=== PATIENT | female | born 1970 | race African-American/Black ===

== ENCOUNTER 2018-05-27 12:28 | Inpatient (IN) | payer MEDICAID, OTHER ==
[~2018-05-27] VITALS: Ht 165.1 cm; Wt 144.2 kg
[2018-05-27] MEDS ORDERED: DILTIAZEM HCL 5MG/ML 5ML VIAL IV ONE (12:45)
[2018-05-27] MEDS ORDERED: DILTIAZEM HCL 30MG TABLET PO ONE (12:45)
[2018-05-27] MEDS ORDERED: ASPIRIN 81MG TABLET PO ONE (12:45)
[2018-05-27] MEDS ORDERED: DEXTROSE 50% WATER 50ML SYRINGE IV ONE ×2 (12:52→13:30)
[2018-05-27 13:18] LABS: BASOPHILS % 0.1 % (0.0-2.0); EOSINOPHILS % 0.4 % (0.0-5.0); HEMATOCRIT. 42.1 % (36.0-48.0); HEMOGLOBIN. 13.1 g/dL (12.0-16.0); LYMPHOCYTES % 7.9 % (20.0-50.0); MEAN CORPUSCULAR HEMOGLOBIN 30.6 pg (28.0-32.0); MEAN CORPUSCULAR VOLUME 98.4 fL (81.0-99.0); MEAN PLATELET VOLUME 8.7 fl (7.4-10.4); MONOCYTES % 5.4 % (2.0-8.0); NEUTROPHILS % 86.2 % (40.0-76.0); PLATELET 180 x1000/uL (130-400); RED BLOOD CELL COUNT 4.28 mill/uL (4.2-5.4); RED CELL DISTRIBUTION WIDTH 17.9 % (11.6-14.6)
[2018-05-27 13:28] LABS: CHLORIDE 97 mEq/L (98-107)
[2018-05-27 13:29] LABS: INR 2.3; PARTIAL THROMBOPLASTIN TIME 38.4 sec (23.4-31.0); PROTHROMBIN TIME 22.4 sec (9.1-11.1)
[2018-05-27 13:31] LABS: ETHANOL BLOOD < 10 mg/dL
[2018-05-27] MEDS ORDERED: IPRATROPIUM/ALBUTEROL 0.5-3(2.5)MG/3ML NEB INH PRN (16:30)
[2018-05-27] MEDS ORDERED: HYDROMORPHONE HCL/PF 2MG/ML CPJ IV PRN (16:30)
[2018-05-27] MEDS ORDERED: DOCUSATE SODIUM 100MG CAPSULE PO PRN (16:30)
[2018-05-27] MEDS ORDERED: ACETAMINOPHEN 325MG TABLET PO PRN (16:30)
[2018-05-27] MEDS ORDERED: CLONIDINE 0.1MG TABLET PO PRN (16:30)
[2018-05-27] MEDS ORDERED: LEVOFLOXACIN 500MG PREMIX 100 ML IV SCH (16:30)
[2018-05-27] MEDS ORDERED: MAGNESIUM/ALUMINUM HYDROXIDE/SIMETHICONE 30ML UDC PO PRN (16:30)
[2018-05-27] MEDS ORDERED: HYDROCODONE/ACETAMINOPHEN 5/325MG TABLET PO PRN (16:30)
[2018-05-27] MEDS ORDERED: ENOXAPARIN 40MG/0.4ML SYR SUBCUT SCH (16:30)
[2018-05-27] MEDS ORDERED: LORAZEPAM 2MG/ML CPJ IV PRN (16:30)
[2018-05-27] MEDS ORDERED: NA PHOS,M-B/NA PHOS,DI-BA ENEMA 118ML PR PRN (16:30)
[2018-05-27] MEDS ORDERED: DIPHENHYDRAMINE 50MG/ML VIAL IV PRN (16:30)
[2018-05-27] MEDS ORDERED: ONDANSETRON HCL 4MG/2ML INJ IV PRN (16:30)
[2018-05-27] MEDS: DEXT 5%/0.45% NACL 1000ML 1,000 ML IV SCH (18:55)
[2018-05-27] MEDS ORDERED: LEVOFLOXACIN 500MG PREMIX 100 ML IV NR (19:30)
[2018-05-27 22:30] VITALS: BP 115/64
[2018-05-27] MEDS ORDERED: DEXTROSE 50% WATER 50ML SYRINGE IV PRN (22:45)
[2018-05-28] VITALS (12 sets, daily range): BP systolic 87–147; BP diastolic 38–97
[2018-05-28 05:02] LABS: CLARITY URINE TURBID (CLEAR); COLOR URINE DARK YELLOW (YELLOW); KETONES URINE NEGATIVE (NEGATIVE); LEUKOCYTE ESTERASE URINE 3+ (NEGATIVE); NITRITE URINE NEGATIVE (NEGATIVE); OCCULT BLOOD URINE 3+ (NEGATIVE); PROTEIN URINE 2+ (NEGATIVE); SPECIFIC GRAVITY URINE 1.013 (1.005-1.030)
[2018-05-28 06:18] LABS: HEMATOCRIT. 39.3 % (36.0-48.0); HEMOGLOBIN. 12.6 g/dL (12.0-16.0); MEAN CORPUSCULAR HEMOGLOBIN 30.9 pg (28.0-32.0); MEAN CORPUSCULAR VOLUME 96.3 fL (81.0-99.0); MEAN PLATELET VOLUME 8.9 fl (7.4-10.4); PLATELET 138 x1000/uL (130-400); RED BLOOD CELL COUNT 4.08 mill/uL (4.2-5.4); RED CELL DISTRIBUTION WIDTH 17.6 % (11.6-14.6)
[2018-05-28 06:23] LABS: CHLORIDE 100 mEq/L (98-107)
[2018-05-28 06:34] LABS: HDL CHOLESTEROL 25 mg/dL (40-59); LDL CHOLESTEROL 19 mg/dL (5-100)
[2018-05-28 06:35] LABS: T4 FREE 1.15 ng/dL (0.76-1.46)
[2018-05-28 07:24] LABS: *AMPHETAMINES SCREEN URINE NEGATIVE (NEGATIVE)
[2018-05-28 07:25] LABS: *BARBITURATES SCREEN URINE NEGATIVE (NEGATIVE); *BENZODIAZEPINES SCREEN URINE NEGATIVE (NEGATIVE); *COCAINE SCREEN URINE NEGATIVE (NEGATIVE); METHADONE URINE SCREEN NEGATIVE (NEGATIVE); OPIATES URINE SCREEN NEGATIVE (NEGATIVE)
[2018-05-28 07:26] LABS: CANNABINOID URINE SCREEN NEGATIVE (NEGATIVE); PHENCYCLIDINE URINE SCREEN NEGATIVE (NEGATIVE)
[2018-05-28] MEDS: INSULIN LISPRO 100 UNITS/ML SUBCUT SCH ×4 (08:00→21:00)
[2018-05-28] MEDS ORDERED: PNEUMOCOCCAL 23-VAL P-SAC VAC 0.5 ML IM ONE (08:00)
[2018-05-28] MEDS: BLOOD SUGAR DIAGNOSTIC STRIP TEST SCH ×4 (08:16→21:32)
[2018-05-28] MEDS: ASPIRIN 81MG EC TABLET PO SCH (08:57)
[2018-05-28] MEDS: DEXT 5%/0.45% NACL 1000ML 1,000 ML IV SCH (09:02)
[2018-05-28] MEDS ORDERED: INFLUENZA VIRUS VACCINE(AFLURIA) 0.5ML SYR IM ONE (10:00)
[2018-05-28 10:57] LABS: CREATINE KINASE MB FRACTION 17.4 ng/mL (0.5-3.6)
[2018-05-28 17:04] LABS: CREATINE KINASE MB FRACTION 14.3 ng/mL (0.5-3.6)
[2018-05-28] MEDS: DIGOXIN 125MCG TABLET PO SCH (17:41)
[2018-05-28 20:09] LABS: PLATELET ESTIMATE NORMAL
[2018-05-28] MEDS: GUAIFENESIN 200MG/10ML SUGAR FREE UDC PO PRN (21:31)
[2018-05-28] MEDS: LEVOFLOXACIN 500MG PREMIX 100 ML IV SCH (21:31)
[2018-05-29] VITALS (12 sets, daily range): BP systolic 110–139; BP diastolic 60–86
[2018-05-29] MEDS: DEXT 5%/0.45% NACL 1000ML 1,000 ML IV SCH ×4 (02:19→15:09)
[2018-05-29 06:34] LABS: CREATINE KINASE MB FRACTION 7.9 ng/mL (0.5-3.6)
[2018-05-29] MEDS: INSULIN LISPRO 100 UNITS/ML SUBCUT SCH ×4 (08:00→21:00)
[2018-05-29] MEDS: BLOOD SUGAR DIAGNOSTIC STRIP TEST SCH ×4 (08:20→21:00)
[2018-05-29] MEDS: ASPIRIN 81MG EC TABLET PO SCH (08:46)
[2018-05-29] MEDS: GUAIFENESIN 200MG/10ML SUGAR FREE UDC PO PRN ×3 (09:29→22:28)
[2018-05-29] MEDS: DIGOXIN 125MCG TABLET PO SCH (17:52)
[2018-05-29] MEDS: CLOPIDOGREL 75MG TABLET PO SCH (17:52)
[2018-05-29 20:47] LABS: INR 1.4; PROTHROMBIN TIME 13.9 sec (9.1-11.1)
[2018-05-29] MEDS: LEVOFLOXACIN 500MG PREMIX 100 ML IV SCH (22:28)
[2018-05-30] VITALS (12 sets, daily range): BP systolic 113–137; BP diastolic 72–94
[2018-05-30] MEDS: DEXT 5%/0.45% NACL 1000ML 1,000 ML IV SCH ×2 (00:11→15:40)
[2018-05-30] MEDS: INSULIN LISPRO 100 UNITS/ML SUBCUT SCH ×4 (08:00→21:00)
[2018-05-30] MEDS: BLOOD SUGAR DIAGNOSTIC STRIP TEST SCH ×4 (08:01→21:32)
[2018-05-30] MEDS: CLOPIDOGREL 75MG TABLET PO SCH (09:00)
[2018-05-30] MEDS: ASPIRIN 81MG EC TABLET PO SCH (09:00)
[2018-05-30] MEDS ORDERED: IODIXANOL 320MG/ML 100 ML BOTTLE IV ONE (13:24)
[2018-05-30] MEDS: DIGOXIN 125MCG TABLET PO SCH (17:28)
[2018-05-30] MEDS: GUAIFENESIN 200MG/10ML SUGAR FREE UDC PO PRN (21:32)
[2018-05-30] MEDS: LEVOFLOXACIN 500MG PREMIX 100 ML IV SCH (21:32)
[2018-05-31] VITALS (11 sets, daily range): BP systolic 84–149; BP diastolic 36–118
[2018-05-31] MEDS ORDERED: LIDOCAINE HCL 1% 20ML VIAL (Pyxis) INJ ONE (07:29)
[2018-05-31] MEDS ORDERED: IODIXANOL 320MG/ML 100 ML BOTTLE IV ONE (07:29)
[2018-05-31] MEDS: BLOOD SUGAR DIAGNOSTIC STRIP TEST SCH ×4 (07:30→20:18)
[2018-05-31] MEDS ORDERED: FENTANYL CITRATE/PF 50MCG/ML 2ML VIAL ONE (07:38)
[2018-05-31] MEDS ORDERED: MIDAZOLAM HCL 2 MG/2 ML VIAL ONE (07:38)
[2018-05-31] MEDS: INSULIN LISPRO 100 UNITS/ML SUBCUT SCH ×4 (08:00→20:26)
[2018-05-31] MEDS ORDERED: ATROPINE SULFATE 1MG/10ML SYR IV PRN (08:15)
[2018-05-31] MEDS ORDERED: ACETAMINOPHEN 325MG TABLET PO PRN (08:15)
[2018-05-31] MEDS: DEXT 5%/0.45% NACL 1000ML 1,000 ML IV SCH (08:20)
[2018-05-31] MEDS: ASPIRIN 81MG EC TABLET PO SCH (11:47)
[2018-05-31] MEDS: LOSARTAN POTASSIUM 50 MG TABLET PO SCH (11:48)
[2018-05-31] MEDS: CARVEDILOL 3.125 MG TABLET PO SCH (11:52)
[2018-05-31] MEDS: DIGOXIN 125MCG TABLET PO SCH (19:05)
[2018-05-31] MEDS: LEVOFLOXACIN 500MG PREMIX 100 ML IV SCH (21:26)
[2018-06-01] VITALS (11 sets, daily range): BP systolic 109–128; BP diastolic 68–87
[2018-06-01] MEDS: DEXT 5%/0.45% NACL 1000ML 1,000 ML IV SCH ×2 (01:11→17:17)
[2018-06-01] MEDS: INSULIN LISPRO 100 UNITS/ML SUBCUT SCH ×4 (06:54→21:00)
[2018-06-01] MEDS: BLOOD SUGAR DIAGNOSTIC STRIP TEST SCH ×4 (06:54→21:24)
[2018-06-01 07:23] LABS: CHLORIDE 103 mEq/L (98-107)
[2018-06-01 07:33] LABS: BASOPHILS % 0.5 % (0.0-2.0); EOSINOPHILS % 1.1 % (0.0-5.0); HEMATOCRIT. 39.1 % (36.0-48.0); HEMOGLOBIN. 12.9 g/dL (12.0-16.0); LYMPHOCYTES % 25.3 % (20.0-50.0); MEAN CORPUSCULAR HEMOGLOBIN 30.7 pg (28.0-32.0); MEAN CORPUSCULAR VOLUME 92.8 fL (81.0-99.0); MONOCYTES % 12.2 % (2.0-8.0); NEUTROPHILS % 60.9 % (40.0-76.0); PLATELET 129 x1000/uL (130-400); RED BLOOD CELL COUNT 4.21 mill/uL (4.2-5.4)
[2018-06-01] MEDS: CARVEDILOL 3.125 MG TABLET PO SCH (09:00)
[2018-06-01] MEDS: LOSARTAN POTASSIUM 50 MG TABLET PO SCH (09:00)
[2018-06-01] MEDS: ASPIRIN 81MG EC TABLET PO SCH (10:09)
[2018-06-01] MEDS: DIGOXIN 125MCG TABLET PO SCH (18:12)
[2018-06-01] MEDS: FUROSEMIDE 40MG TABLET PO SCH (18:40)
[2018-06-01] MEDS: LEVOFLOXACIN 500MG PREMIX 100 ML IV SCH (22:17)
[2018-06-02] VITALS (10 sets, daily range): BP systolic 112–149; BP diastolic 55–90
[2018-06-02] MEDS: BLOOD SUGAR DIAGNOSTIC STRIP TEST SCH ×2 (06:38→12:13)
[2018-06-02] MEDS: INSULIN LISPRO 100 UNITS/ML SUBCUT SCH ×2 (07:15→12:13)
[2018-06-02] MEDS ORDERED: LOSARTAN POTASSIUM 25 MG TABLET PO SCH (09:00)
[2018-06-02] MEDS: CARVEDILOL 3.125 MG TABLET PO SCH (09:13)
[2018-06-02] MEDS: ASPIRIN 81MG EC TABLET PO SCH (09:14)
[2018-06-02] MEDS: FUROSEMIDE 40MG TABLET PO SCH (09:14)
== END 2018-06-02 17:02 | disposition home or self-care (01) | DRG 192 ==
LOC: ER 12:28 → 5EST 14:27 → EDBEDREQSVC 14:32 → EDBEDREQ 14:32 → ENRESERV 19:39 → 3WST 05-31 08:20
PROVIDERS: ADMIT Internal Medicine; ATTEND Internal Medicine
PROC: 4A023N7 Measurement of Cardiac Sampling and Pressure, Left Heart, Percutaneous Approach (ICD-10-PCS; principal; 2018-05-31)
PROC: B211YZZ Fluoroscopy of Multiple Coronary Arteries using Other Contrast (ICD-10-PCS; 2018-05-31)
DX: I50.23 Acute on chronic systolic (congestive) heart failure (principal); N17.0 Acute kidney failure with tubular necrosis; G93.41 Metabolic encephalopathy; E46 Unspecified protein-calorie malnutrition; D68.9 Coagulation defect, unspecified; E11.649 Type 2 diabetes mellitus with hypoglycemia without coma; E87.2 Acidosis; I42.0 Dilated cardiomyopathy; I48.0 Paroxysmal atrial fibrillation; I48.2 Chronic atrial fibrillation; D64.9 Anemia, unspecified; I25.10 Atherosclerotic heart disease of native coronary artery without angina pectoris; E78.5 Hyperlipidemia, unspecified; I11.0 Hypertensive heart disease with heart failure; Z91.14 Patient's other noncompliance with medication regimen; Z68.43 Body mass index [BMI] 50.0-59.9, adult
CPT/HCPCS: 36415; 71045; 80048; 80061; 80305; 82550; 82553; 82962; 83036; 83605; 83880; 84439; 84443; 84484; 85379; 90686; 90732; 93005; 93306; 93458; 93970; 96365; 96372; 96375; 97162; 97166; 99291; A6261; C1760; C1769; C1887; C1893; G0482; J1644; J1956; J2250; J3010; J3490; J7050; J7620; Q9967